=== PATIENT | male | born 1945 | race Caucasian/White ===

== ENCOUNTER 2017-06-18 05:33 | Inpatient (IN) ==
[2017-06-18] MEDS ORDERED: VANCOMYCIN INJ 1,000 MG in SODIUM CHLORIDE 0.9% 250 ML IV ONE ×2 (06:00→18:00)
[2017-06-18] MEDS ORDERED: ceFAZolin 1,000 MG in SYRINGE 1 EACH IV ONE (06:00)
[2017-06-18] MEDS ORDERED: TRANEXAMIC ACID 1,000 MG/10 ML VIAL IV ONE (06:35)
[2017-06-18] MEDS ORDERED: BACITRACIN OINT 0.9 GM PACK TOP ONE (06:35)
[2017-06-18] MEDS ORDERED: VANCOMYCIN 1,000 MG VIAL ONE (06:43)
[2017-06-18] MEDS ORDERED: ceFAZolin 1,000 MG VIAL ONE (06:43)
[2017-06-18] MEDS ORDERED: LACTATED RINGERS 1,000 ML IV SCH (07:00)
[2017-06-18] MEDS ORDERED: oxyCODONE/ACETAMINOPHEN 5-325 MG TABLET PO PRN (07:17)
[2017-06-18] MEDS ORDERED: MAGNESIUM HYDROXIDE SUSP 30 ML UDCUP PO PRN (07:17)
[2017-06-18] MEDS ORDERED: HYDROmorphone 2 MG/1 ML VIAL IV PRN (07:17)
[2017-06-18] MEDS ORDERED: diphenhydrAMINE CAP 25 MG CAPSULE PO PRN (07:17)
[2017-06-18] MEDS ORDERED: ONDANSETRON 4 MG/2 ML VIAL IV PRN (07:17)
[2017-06-18] MEDS ORDERED: ROPIVACAINE 0.5% 30 ML VIAL ONE (08:59)
[2017-06-18] MEDS ORDERED: MIDAZOLAM 2 MG/2 ML VIAL ONE (09:39)
[2017-06-18] MEDS ORDERED: fentaNYL 100 MCG/2 ML VIAL ONE (09:39)
[2017-06-18] MEDS ORDERED: PROPOFOL 200 MG/20 ML VIAL IV ONE (09:39)
[2017-06-18] MEDS ORDERED: ONDANSETRON 4 MG/2 ML VIAL ONE (09:39)
[2017-06-18] MEDS ORDERED: KETOROLAC 30 MG/1 ML VIAL ONE (09:39)
[2017-06-18] MEDS: oxyCODONE/ACETAMINOPHEN 5-325 MG TABLET PO PRN ×2 (10:51→16:22)
[2017-06-18] MEDS: LACTATED RINGERS 1,000 ML IV SCH ×2 (10:56→21:15)
[2017-06-18] MEDS: ACETAMINOPHEN 500 MG TABLET PO SCH ×2 (12:15→17:51)
[2017-06-18] MEDS: KETOROLAC 30 MG/1 ML VIAL IV SCH ×3 (12:16→22:34)
[2017-06-18] MEDS ORDERED: BUPIVACAINE SPINAL 0.75% 2 ML AMP SPINAL ONE (12:17)
[2017-06-18] MEDS: PRAVASTATIN 40 MG TABLET PO SCH (12:17)
[2017-06-18] MEDS: DOCUSATE SODIUM 100 MG CAPSULE PO SCH ×2 (12:17→21:15)
[2017-06-18] MEDS: HYDROmorphone 2 MG/1 ML VIAL IV PRN ×2 (14:25→20:09)
[2017-06-18] MEDS: ceFAZolin 2,000 MG in PREMIX 1 EACH IV SCH ×2 (16:14→22:36)
[2017-06-18] MEDS: oxyCODONE ER 20 MG TABLET PO SCH ×2 (21:06→21:10)
[2017-06-19] MEDS: ACETAMINOPHEN 500 MG TABLET PO SCH ×2 (01:07→05:23)
[2017-06-19] MEDS: KETOROLAC 30 MG/1 ML VIAL IV SCH (04:23)
[2017-06-19] MEDS: FONDAPARINUX 2.5 MG/0.5 ML SYRINGE SUBCUT SCH (05:23)
[2017-06-19] MEDS: LACTATED RINGERS 1,000 ML IV SCH (05:30)
[2017-06-19 06:31] LABS: Basophils % 0.4 % (0.0-0.8); Eosinophils % 0.4 % (0.00-10.9); Hematocrit 34.5 VOL% (42.0-52.0); Hemoglobin 11.8 GM/DL (14.0-18.0); Immature Granulocytes % 0.3 %; Immature Granulocytes Absolute 0.03 #; Lymphocytes # 0.7 10*3/uL (1.4-4.0); Lymphocytes % 7.6 % (21.2-54.2); Mean Corpuscular HGB Conc 34.2 GM/DL (32-36); Mean Corpuscular Hemoglobin 31 PG (27-34); Mean Corpuscular Volume 90.1 FL (87-102); Mean Platelet Volume 10.8 FL (9.6-12.0); Monocytes # 1.1 10*3/uL (0.11-0.8); Monocytes % 11.9 % (1.7-12.7); Neutrophils # 7.6 10*3/uL (1.4-7.4); Neutrophils % 79.4 % (38.7-73.9); Platelet Count 205 T/CUMM (130-400); Red Blood Count 3.83 MC/CUMM (3.8-5.5); Red Cell Distribution Width 12.8 % (9.3-17.3); White Blood Count 9.6 T/CUMM (4-12)
[2017-06-19 06:58] LABS: Calcium 7.8 MG/DL (8.5-10.1); Osmolality,Calculated 278.7 MOS/KG (273-304); Potassium 3.6 MMOL/L (3.5-5.1)
[2017-06-19] MEDS: LOSARTAN/HCTZ 50-12.5 MG TABLET PO SCH (09:41)
[2017-06-19] MEDS: oxyCODONE ER 20 MG TABLET PO SCH ×2 (09:41→20:23)
[2017-06-19] MEDS: DOCUSATE SODIUM 100 MG CAPSULE PO SCH ×2 (09:42→20:24)
[2017-06-19] MEDS: PRAVASTATIN 40 MG TABLET PO SCH (09:42)
[2017-06-19] MEDS: oxyCODONE/ACETAMINOPHEN 5-325 MG TABLET PO PRN ×2 (10:28→16:13)
[2017-06-19] MEDS: HYDROmorphone 2 MG/1 ML VIAL IV PRN (13:07)
[2017-06-19] MEDS: oxyCODONE IR 5 MG TABLET PO PRN ×2 (13:49→18:39)
[2017-06-19] MEDS: CELECOXIB 200 MG CAPSULE PO SCH (16:13)
[2017-06-20] MEDS: FONDAPARINUX 2.5 MG/0.5 ML SYRINGE SUBCUT SCH (04:43)
[2017-06-20] MEDS: oxyCODONE/ACETAMINOPHEN 5-325 MG TABLET PO PRN ×2 (05:36→10:28)
[2017-06-20 06:05] LABS: Basophils # 0.1 10*3/uL (0.0-0.2); Basophils % 0.5 % (0.0-0.8); Eosinophils # 0.2 10*3/uL (0.0-0.87); Eosinophils % 1.5 % (0.00-10.9); Hematocrit 33.5 VOL% (42.0-52.0); Hemoglobin 11.8 GM/DL (14.0-18.0); Immature Granulocytes % 0.3 %; Immature Granulocytes Absolute 0.03 #; Lymphocytes % 9.7 % (21.2-54.2); Mean Corpuscular HGB Conc 35.2 GM/DL (32-36); Mean Corpuscular Hemoglobin 32 PG (27-34); Mean Corpuscular Volume 89.6 FL (87-102); Mean Platelet Volume 10.8 FL (9.6-12.0); Monocytes # 1.2 10*3/uL (0.11-0.8); Monocytes % 11.9 % (1.7-12.7); Neutrophils # 7.5 10*3/uL (1.4-7.4); Neutrophils % 76.1 % (38.7-73.9); Platelet Count 206 T/CUMM (130-400); Red Blood Count 3.74 MC/CUMM (3.8-5.5); White Blood Count 9.9 T/CUMM (4-12)
[2017-06-20 06:22] LABS: Calcium 7.9 MG/DL (8.5-10.1); Osmolality,Calculated 276.7 MOS/KG (273-304); Potassium 3.3 MMOL/L (3.5-5.1)
[2017-06-20 07:57] VITALS: BP 126/59
[2017-06-20] MEDS: oxyCODONE ER 20 MG TABLET PO SCH (08:08)
[2017-06-20] MEDS: DOCUSATE SODIUM 100 MG CAPSULE PO SCH (08:08)
[2017-06-20] MEDS: LOSARTAN/HCTZ 50-12.5 MG TABLET PO SCH (08:08)
[2017-06-20] MEDS: CELECOXIB 200 MG CAPSULE PO SCH (08:08)
[2017-06-20] MEDS: PRAVASTATIN 40 MG TABLET PO SCH (08:09)
== END 2017-06-20 14:02 | disposition home health service (06) | DRG 470 ==
LOC: N.OR 05:33 → N.SDSINP 05:35 → N.3E 10:12
PROVIDERS: ADMIT Orthopaedic Surgery; ATTEND Orthopaedic Surgery